=== PATIENT | female | born 1945 | race Caucasian/White ===

== ENCOUNTER 2018-05-13 09:59 | Day surgery (SDC) | payer OTHER ==
[2018-05-13] VITALS (10 sets, daily range): BP systolic 105–154; BP diastolic 52–73; PULSE 79–85; TEMP 97.6–98.8
[~2018-05-13] VITALS: Ht 160 cm; Wt 100.1 kg
[~2018-05-13 09:59] MED LIST: LEXAPRO20 MG PO; MACROBID 1100 MG/CAP PO; MULTIVITAMIN FO1 CAP PO; NORCO 325 MG-7.1 TAB PO; PLAVIX 75MG TAB75 MG PO; PROTONIX 40MG T40 MG PO; PYRIDIUM200 M1 PO; TYLENOL COLD PO; ZOCOR 10MG10 MG PO
[2018-05-13] MEDS ORDERED: CEPHALEXIN500 M1 PO (11:17)
[2018-05-13] MEDS ORDERED: REGLAN 10MG10 MG/TAB PO (11:18)
[2018-05-13] MEDS ORDERED: CLARITIN 1010 MG/TAB PO (11:19)
[2018-05-13] MEDS ORDERED: FLOVENT 220MCG7.9 GM IH (11:19)
[2018-05-13] MEDS ORDERED: ZOFRAN 4MG T4 MG/TAB PO (11:21)
--- NOTE | 2018-05-13 17:55 | NUR ---
Pt arrived to room at this time via bed with OR staff. Pt is alert and oriented but drowsy, at bedside. 6 lap sites on abd are covered with bandaids and CDI. Denies pain or nausea, requesting CL, will provide. VSS, on 4L OM to maintain sats. will continue to monitor.
--- NOTE | 2018-05-13 18:39 | NUR ---
Pt awake nad resting with family visiting at bedside. Tolerating CL well. Denies needs, VSS, will continue to monitor.
--- NOTE | 2018-05-13 20:00 | NUR ---
Initial shift assessment done- ,VSS, states feeling ok, states having some pain shoulders-understands thats from the air in abdomen from the surgery-- 08/28--will start with 5mg oxycodone and see if that helps-- using IS up to 2000- no flatus, abd soft, faint bowel sounds. Bandaids to abd x6-all dry and intact. IV fluids of NS at 75cc/hr- is taking some sips clear liquids without nausea. SCD,s on.
--- NOTE | 2018-05-13 22:15 | NUR ---
States still having the shoulder pain- will give the additional 5mg oxycodone plus the scheduled tylenol at this time. Pt up to bathroom with assist- voiding good amount coni urine. Up in [place] with nurse- short walk- tolerated well.
[2018-05-14 01:46] VITALS: BP 108/79; PULSE 83; TEMP 97.6
[2018-05-14 05:58] VITALS: BP 120/64; PULSE 72; TEMP 98.9
--- NOTE | 2018-05-14 06:16 | NUR ---
Did sleep for 3-4 hours- states feels better this morning,, shoulder pain improved with oxycodone and Tylenol. Bandaids x6 dry/inatct to abdomen. Denies flatus. Using IS
[2018-05-14 07:01] VITALS: BP 119/64; PULSE 74; TEMP 98.4
--- NOTE | 2018-05-14 07:37 | NUR ---
Pt is A/Ox4, resting in bed. She states she is having pain in her shoudler, referred pain from lap procedure. Given PRN oxycodone for this. INT to left FA is free of complications. Pt remains on room air. Pt states she would like to continue to rest, breakfast ordered. Denies any further needs.
[2018-05-14 11:00] VITALS: BP 114/73; PULSE 86; TEMP 98.2
--- NOTE | 2018-05-14 15:16 | NUR ---
Pt states she has been sleepy this afternoon due to not getting good rest last night. at bedside. Denies any needs at this time.
--- NOTE | 2018-05-14 16:02 | NUR ---
SW and SW student met with patient to discuss discharge planning. Patient lives in [place] with her Ramon. She is independent in her ADL's and reports she uses a walker when needed. Patients PCP is Dr Rudolph Fatima and she obtains her medications from [facility] in [place]. Patient reports she does not have a dpoa-hc and they do not want to fill one out at this time. patient is dc home today with no unmet discharge needs.
[2018-05-14] MEDS ORDERED: ROXICODONE 55 MG/TAB PO (17:12)
[2018-05-14] MEDS ORDERED: TYLENOL 500MG500 MG PO (17:14)
--- NOTE | 2018-05-14 17:37 | NUR ---
Pt was discharged home from hospital. All discharge instructions and paperwork was reviewed with pt and who expressed understanding and had no questions. New prescriptions given. Pt to make follow up appt tomorrow when office opens. Flovent returned from pt. Pt was escorted out of facility by staff.
== END 2018-05-14 18:18 | disposition home or self-care (01) ==
LOC: SDCO 09:59 → MEDICAL 18:16 → SDCO 05-14 18:18
DX: K21.9 Gastro-esophageal reflux disease without esophagitis (principal); K44.9 Diaphragmatic hernia without obstruction or gangrene; J44.9 Chronic obstructive pulmonary disease, unspecified; Z79.899 Other long term (current) drug therapy; Z79.01 Long term (current) use of anticoagulants; G47.33 Obstructive sleep apnea (adult) (pediatric); Z86.73 Personal history of transient ischemic attack (TIA), and cerebral infarction without residual deficits
CPT/HCPCS: OP; A9284; C1713; C1781; J0360; J0690; J1100; J2370; J2405; J2704; J2765; J3010; J7030; J7120

== ENCOUNTER 2018-09-03 13:28 | Day surgery (SDC) | payer OTHER, MEDICARE ==
[~2018-09-03] VITALS: Ht 161.9 cm; Wt 102.1 kg
[~2018-09-03 13:28] MED LIST changes: +CEPHALEXIN500 M1 PO; +CLARITIN 1010 MG/TAB PO; +FLOVENT 220MCG7.9 GM IH; +REGLAN 10MG10 MG/TAB PO; +ROXICODONE 55 MG/TAB PO; +TYLENOL 500MG500 MG PO; +ZOFRAN 4MG T4 MG/TAB PO
[2018-09-03 14:29] VITALS: BP 134/87; PULSE 104; TEMP 99.4
[2018-09-03] MEDS ORDERED: OPCON-A 0.027%-15 M1 OP (14:39)
[2018-09-03] MEDS ORDERED: CALMOSEPTINE1 OIN TP (14:42)
--- NOTE | 2018-09-03 14:43 | NUR ---
TO RM 7 AT 1350-call light in reach AT BEDSIDE.
--- NOTE | 2018-09-03 15:45 | NUR ---
RECEIVED WARM BLANKETS AND AT BEDSIDE.
--- NOTE | 2018-09-03 16:25 | NUR ---
DR PALUMBO INTO TALK WITH PATIENT AND .
--- NOTE | 2018-09-03 18:08 | NUR ---
Pt arrived to room 324 from OR. She is awake and A/Ox4. She was able to scoot from cart to bed without difficulty. She is teary-eyed. Prescription given to , left to fill at pharmacy. Pt given water and zohaib crackers upon request, tolerating without difficulty.
== END 2018-09-03 19:48 ==
LOC: SDCO 13:28 → SURG 17:57 → SDCO 19:48
DX: N39.41 Urge incontinence (principal); R15.2 Fecal urgency; R35.0 Frequency of micturition; J44.9 Chronic obstructive pulmonary disease, unspecified; Z86.73 Personal history of transient ischemic attack (TIA), and cerebral infarction without residual deficits; F32.9 Major depressive disorder, single episode, unspecified; K21.9 Gastro-esophageal reflux disease without esophagitis; E78.00 Pure hypercholesterolemia, unspecified; I10 Essential (primary) hypertension; G47.33 Obstructive sleep apnea (adult) (pediatric); M85.80 Other specified disorders of bone density and structure, unspecified site; Z90.49 Acquired absence of other specified parts of digestive tract; Z90.710 Acquired absence of both cervix and uterus; Z79.02 Long term (current) use of antithrombotics/antiplatelets; Z88.5 Allergy status to narcotic agent; Z91.040 Latex allergy status; Z88.2 Allergy status to sulfonamides; Z88.1 Allergy status to other antibiotic agents; Z87.891 Personal history of nicotine dependence; Z80.51 Family history of malignant neoplasm of kidney; Z80.1 Family history of malignant neoplasm of trachea, bronchus and lung; Z84.1 Family history of disorders of kidney and ureter; N30.20 Other chronic cystitis without hematuria; J30.2 Other seasonal allergic rhinitis; Z91.048 Other nonmedicinal substance allergy status; M19.019 Primary osteoarthritis, unspecified shoulder
CPT/HCPCS: OP; C1767; C1778; C1787; C1894; J1580; J2704; J3010; J7120